=== PATIENT | female | born 1990 | race African-American/Black ===

== ENCOUNTER 2020-11-06 11:54 | Emergency (ER) | payer SELFPAY ==
[~2020-11-06] VITALS: Ht 170.2 cm; Wt 51.7 kg
[2020-11-06 12:28] VITALS: BP_SYST 135
[2020-11-06 13:02] VITALS: BP_SYST 135
== END 2020-11-06 13:02 | disposition home or self-care (01) ==
LOC: SED 11:54
DX: Z02.83 Encounter for blood-alcohol and blood-drug test (principal); F17.210 Nicotine dependence, cigarettes, uncomplicated
CPT/HCPCS: 99283